=== PATIENT | male | born 1990 | race Caucasian/White ===

== ENCOUNTER 2022-12-25 20:03 | Emergency (ER) | payer SELFPAY ==
[2022-12-25 20:23] VITALS: BP 130/82; BP 134/84; PULSE 74; PULSE 80; RESP 16; O2SAT 98; BMI 31.2
--- NOTE | 2022-12-25 20:34 | ED.GENADULT ---
HPI - General Adult General Chief complaint: Overdose Stated complaint: opiod overdose, per ems Time Seen by Provider: 12/25/22 20:21 Source: patient and old records reviewed Mode of arrival: EMS Limitations: no limitations History of Present Illness HPI narrative: 32-year-old male presents for evaluation of ?I overdosed. ? Patient admits to smoking 1 bag of heroin. He denies any intentional overdose and states ?I was just trying to get high. ? Denies any other, ingestions Patient states that he does not inject intravenously He states that he feels nauseous and tired but otherwise has no complaints Patient received Narcan 4 mg intranasally by her friend to EMS arrived Related Data Allergies Allergy/AdvReac Type Severity Reaction Status Date / Time No Known Allergies Allergy Verified 12/25/22 22:06 Review of Systems Constitutional: Constitutional: Reports as per HPI, Denies chills, Denies fatigue, Denies fever(s) and Denies headache(s) ENT: Denies headache(s) Cardiovascular: Cardiovascular: Denies chest pain and Denies dyspnea Respiratory: Respiratory: Denies cough and Denies dyspnea Gastrointestinal: Gastrointestinal: Denies abdominal pain, Denies constipation and Denies vomiting Genitourinary: Genitourinary: Denies difficulty urinating and Denies dysuria Neurologic: Denies headache(s) and Denies focal weakness Endocrine: Endocrine: Denies fatigue PMFSH Social History Social History Advance Directives: No Advance Directives Information Provided: Yes Physical Exam ED Vital Signs: Vital Signs - 24 hr 12/25/22 20:23 Pulse Rate 74 Respiratory Rate 16 Blood Pressure 130/82 Pulse Oximetry 98 Oxygen Delivery Method Room Air BMI result Body Mass Index 31.2 Const General: healthy appearing, comfortable, no acute distress, alert, awake and diaphoretic Nutritional Appearance: well nourished Orientation/consciousness: patient oriented x3 HENMT Head: Yes normocephalic and Yes atraumatic Eyes Eyelids: Yes eyelids normal Conjunctivae: conjunctivae normal Sclerae: sclerae normal Corneas: corneas normal Pupils: Equal, round and reactive pupils present EOM: EOMs intact bilaterally Neck Neck: Yes full ROM Resp Effort & Inspection: normal respiratory effort, able to speak in complete sentences and not labored Skin General skin exam: no rashes or lesions noted and elasticity normal Neuro General: patient oriented x3 Cranial nerves: Yes Equal, round and reactive pupils present and Yes Bilaterally intact EOM present Cognition (Neuro): normal cognition Extrem Other: Moving all extremities well without any obvious deformities Course Reevaluation(s) Reevaluation #1: Patient awake, alert oriented, he has been eating and drinking. He is stable for discharge at this time. Time: 22:04 Medical Decision Making Medical Decision Making MDM Narrative: 32-year-old male presents for evaluation after reported opiate overdose. The patient admits to using heroin. He was given 4 mg of Narcan by a friend prior to EMS arrival. The patient has no complaints except for nausea and fatigue. He will be observed in the ER. Denies any suicide ideation or intentional overdose. Differential Diagnosis Substance abuse Opiate abuse Overdose Polysubstance abuse Discharge Plan Discharge Clinical Impression: Opioid overdose Patient Disposition: Home, Self-Care Instructions: Opioid Use Disorder (ED) Additional Instructions: Your given take-home Narcan which he may use for any opioid overdoses
--- NOTE | 2022-12-25 20:56 | PC.NURSE ---
pt aox4 denies pain states he is slightly nauseous requesting refreshments and food-provided calm/cooperative no apparent distress
--- NOTE | 2022-12-25 22:20 | PC.NURSE ---
Discharge instructions given and explained to pt No apparent distress, no sob, able to speak in full sentences aox4 ambulates safely/independently all of pt's questions answered
[2022-12-25 22:35] VITALS: BP 133/83; PULSE 74; RESP 16; TEMP 37.1; O2SAT 98
[2022-12-25] MEDS: Naloxone HCl Nasal TAKE HOME 4 MG SPRAY NOSTRILALT (22:36)
--- NOTE | 2022-12-25 22:36 | PC.NURSE ---
nasal narcan given to pt to take home
--- NOTE | 2022-12-25 22:37 | PC.NURSE ---
Discharge instructions given and explained to pt No apparent distress, no sob, able to speak in full sentences aox4 ambulates safely/independently all of pt's questions answered
== END 2022-12-25 22:37 | disposition home or self-care (01) ==
PROVIDERS: Emergency Provider Emergency Medicine Emergency Medical Services
DX: R11.0 Nausea (principal); T40.1X1A Poisoning by heroin, accidental (unintentional), initial encounter; Y92.9 Unspecified place or not applicable
CPT/HCPCS: 99285